=== PATIENT | female | born 1940 | race Caucasian/White ===

== ENCOUNTER → 2018-01-13 | Outpatient (CLI) | payer OTHER ==
[~2018-01-13] MED LIST: IOPAMIDOL 370 MG/ML 200 ML INFUS..BTL INJ ONE; SODIUM CHLORIDE 0.9% 100 ML 100 ML ONE
[2018-01-13 10:48] LABS: ANION GAP 12.6 mmol/L (8-16); BLOOD UREA NITROGEN 16 mg/dL (7-26); BUN/CREATININE RATIO 21 (6-25); CALCIUM 9.4 mg/dL (8.4-10.2); CARBON DIOXIDE 26 mmol/L (22-29); CHLORIDE 106 mmol/L (98-107); CREATININE, SERUM 0.78 mg/dL (0.57-1.11); EST GLOMERULAR FILTRATION RATE > 60 ML/MIN (60-); GLUCOSE 127 mg/dL (74-118); POTASSIUM 4.6 mmol/L (3.5-5.1); SODIUM 140 mmol/L (136-145)
--- NOTE | 2018-01-13 12:25 | Diagnostic Imaging Report ---
EXAM: CTA OF THE ABDOMINAL AORTA AND PELVIC ARTERIES INDICATION: Abdominal aortic aneurysm COMPARISON: Abdominal ultrasound 07/11/2014 TECHNIQUE: Multi-detector CT technology was employed. CTA of the abdomen and pelvis was performed after the administration of IV contrast. IV CONTRAST: 100 mL of Isovue-370 ORAL CONTRAST: None COMPLICATIONS: None RADIATION DOSE: Total DLP: 701.9 mGy*cm Estimated effective dose: (DLP x 0.015 x size factor) mSv CTDIvol has been reviewed. It is below the limits set by the Radiation Protocol Committee (RPC). For optimization of anatomic evaluation, multiplanar reconstruction, maximum intensity projections, and advanced 3-D off-line postprocessing were performed on a dedicated stand-alone workstation under the direct supervision of the interpreting physician. FINDINGS: Potential study limitations: None. VASCULAR WITH ADVANCED 3-D OFF-LINE POSTPROCESSING: Abdominal aortic aneurysm detail anatomy: Fusiform aneurysm of the infrarenal abdominal aorta, which begins 15 mm inferior to the main right renal artery and extends down to the bifurcation.. The superior neck measures 2.3 cm and the inferior neck measures 2.0 cm. The length from the aortic bifurcation to the origin of the external iliac arteries approximately 6 cm on the right and 5.4 cm on the left though this is difficult to ascertain due to common iliac arterial tortuosity. There is mild proximal angulation of the aneurysm. There is no acute aortic pathology . Aortic plaques: Moderate atherosclerotic plaque elsewhere within the abdominal aorta.. The abdominal aorta measures: 2.8 cm at the supramesenteric segment 2.8 cm at the mesenteric segment 2.2 cm at the renal segment 4.8 cm at the mid infrarenal segment (maximum aneurysmal diameter) with significant crescentic mural thrombus as well as mural calcifications. Maximum aneurysm diameter was measured at 4.1 cm on comparison ultrasound from 2014. 2.1 cm at the aortic bifurcation. There is moderate celiac axis origin stenosis with poststenotic dilatation. The SMA origin is widely patent. The left gastric artery gives rise to the left hepatic artery. Single bilateral renal arteries are widely patent. The ALPHONSO origin is patent and arises from the aneurysmal segment of aorta. Atherosclerotic calcification and tortuosity of the iliac arterial systems without aneurysmal dilatation. The right common iliac artery and left common iliac artery each measure 11 mm in diameter. The right and left external iliac arteries each measure 8 mm in diameter. Internal iliac arteries and visceral branches are patent. LOWER CHEST: Scattered linear and reticular opacities in the lung bases compatible with linear scar or fibrosis. ABDOMEN: 5.2 cm oblong, lobulated hypoattenuating lesion in segment 4A of the liver, internal attenuation less than 20 Hounsfield units, shown to represent a simple cyst on comparison ultrasound. Similar though smaller lesion in segment 7, also average internal attenuation less than 20 Hounsfield units. Additional subcentimeter hypoattenuating lesions within the liver, too small to further characterize though likely to represent additional small cysts. Multiple calculi within the gallbladder, without wall thickening or adjacent inflammatory change. The spleen, pancreas, adrenals, and kidneys are notable only for a 1.1 cm right adrenal nodule of average internal attenuation 30 Hounsfield units. The urinary bladder is unremarkable. Uterus is not identified and has presumably been removed. No adnexal masses. There are a few diverticula along the large bowel without findings of diverticulitis. The large bowel is otherwise collapsed over long segments and poorly evaluated. The appendix is normal. The stomach is collapsed with prominent rugal folds. No small bowel dilatation to suggest obstruction. No pelvic sidewall, retroperitoneal, or mesenteric lymphadenopathy. No ascites or pneumoperitoneum. BONES: No focal soft tissue abnormalities. No osseous destructive lesions. Multilevel degenerative disc changes and facet arthropathy of the lumbar spine. IMPRESSION: Infrarenal abdominal aortic aneurysm now measuring 4.8 cm in maximum diameter (previously 4.1 cm by abdominal ultrasound 07/11/2014) which extends to the bifurcation but does not involve the common iliac arteries as detailed above. Moderate celiac axis origin stenosis; otherwise widely patent visceral branch vessels. Nonvascular findings include multiple hepatic cysts, cholelithiasis without sonographic evidence of acute cholecystitis, and large bowel diverticulosis without evidence of diverticulitis. Indeterminate right adrenal nodule should be definitively characterized by CT or MRI of the abdomen with and without contrast (adrenal mass protocol). Signed by: Dr. Jose Waterman M.D. on 01/13/2018 12:21 PM
== END ==
LOC: CT 09:40
PROVIDERS: ATTEND Internal Medicine Interventional Cardiology
DX: I71.4 Abdominal aortic aneurysm, without rupture (principal)
CPT/HCPCS: 36415; 74174; 80048; Q9967